=== PATIENT | female | born 1970 | race Caucasian/White ===

== ENCOUNTER 2016-12-31 11:21 | Emergency (ER) | payer SELFPAY ==
[~2016-12-31] VITALS: Ht 172.7 cm; Wt 79.5 kg
[2016-12-31] MEDS ORDERED: FLUO-191 PO (11:35)
[2016-12-31 11:57] VITALS: BP 118/62
== END 2016-12-31 12:30 | disposition home or self-care (01) ==
LOC: EMS 11:24
DX: M54.5 Low back pain (principal); F32.9 Major depressive disorder, single episode, unspecified; F41.9 Anxiety disorder, unspecified; F17.210 Nicotine dependence, cigarettes, uncomplicated; Z88.0 Allergy status to penicillin; Z90.49 Acquired absence of other specified parts of digestive tract; Z90.710 Acquired absence of both cervix and uterus; Z88.5 Allergy status to narcotic agent
CPT/HCPCS: 99283